=== PATIENT | male | born 1990 | race African-American/Black ===

== ENCOUNTER 2016-08-22 08:10 | Emergency (ER) | payer BC | END 2016-08-22 08:19 | disposition home or self-care (01) | LOC: CED 08:10 | DX: S16.1XXA Strain of muscle, fascia and tendon at neck level, initial encounter (principal); F17.210 Nicotine dependence, cigarettes, uncomplicated; X50.0XXA Overexertion from strenuous movement or load, initial encounter; Y92.69 Other specified industrial and construction area as the place of occurrence of the external cause; Y99.0 Civilian activity done for income or pay | CPT/HCPCS: 99283 ==